=== PATIENT | female | born 1990 | race Caucasian/White ===

== ENCOUNTER 2016-11-09 15:39 | Emergency (ER) | payer OTHER ==
--- NOTE | ~2016-11-09 | CT2 ---
[facility] A Service of [facility] RADIOLOGY TEXT RESULTS PATIENT: DIVYA DOTSON LOCATION: SED : 90 UNIT #: [id number] AGE: [address]: Luigi Roberts MD SEX: F ORDER DR: [id number] [address] [address] [id number] MR#: [id number] Acc #: [id number] NAME: DIVYA DOTSON : 1990 SEX: F STUDY DATE/TIME: 11/09/2016 17:55 UNIT: SED ROOM: STUDY DESCRIPTION: CT Abd and Pelv W Cont Attending Physician: Luigi Roberts M.D. Ordering Physician: Luigi Roberts M.D. Primary Care Physician: David Hollins M.D. MEDICAL IMAGING REPORT This report is preliminary unless electronic signature is present. EXAM CT abdomen and pelvis with contrast 11/09/2016 HISTORY 26-year-old female in the ED complaining of lower abdomen pain beginning about 1 hour prior to arrival. She states her IUD has shifted position. TECHNIQUE CT examination of the abdomen and pelvis was performed with IV contrast. GI contrast was not administered. This CT examination was performed with one or more of the following radiation dose reduction techniques: automatic exposure control, adjustment of mA and/or kV according to patient size, and iterative reconstruction. FINDINGS ABDOMEN: Liver, pancreas, spleen and kidneys are normal in size and appearance. Nondistended gallbladder. No bile duct dilatation. Small bowel and colon are normal in caliber and appearance. The appendix is normal where seen. PELVIS: The IUD is suboptimally positioned in the upper endocervical canal and lower uterine segment. Small physiologic ovary cysts are present bilaterally along with a small amount of free pelvic fluid. Bladder and rectum are negative. Limited lung base images show no active disease. IMPRESSION 1. No acute abnormality within the abdomen or pelvis. 2. Normal appendix. 3. Suboptimally positioned IUD within the upper endocervical canal and lower uterine segment. Small amount of physiologic free pelvic fluid. [facility] A Service of [facility] RADIOLOGY TEXT RESULTS PATIENT: DIVYA DOTSON LOCATION: SED : 90 UNIT #: [id number] AGE: [address]: Luigi Roberts MD SEX: F ORDER DR: Dictated by... Justen Campos M.D. THIS IS AN ELECTRONICALLY VERIFIED REPORT Justen Campos M.D. at 11/10/2016 12:52 PM DANIELLA/maryr TD: 11/10/2016 09:15 JOB #: [id number] MEDICAL IMAGING REPORT Page 1 of 1
[~2016-11-09 15:39] MED LIST: AMOXICILLIN PO; CIPRO PO; CORTISPORIN-TC10 ML OT; DOXYCYCLINE150 MG PO; FLEXERIL10 MG PO; IBUPROFEN800 MG PO; LORTAB 5/500 TA1 TA1 PO; PYRIDIUM PO; VIBRAMYCIN100 M1 PO
[2016-11-09 16:58] LABS: URINE SOURCE CLEAN CATCH
[2016-11-09 17:01] LABS: URINE APPEARANCE CLEAR; URINE BILIRUBIN NEG (NEG); URINE BLOOD NEG (NEG); URINE COLOR YELLOW; URINE GLUCOSE NEG (NORM); URINE KETONE NEG (NEG); URINE LEUKOCYTE ESTERASE NEG (NEG); URINE NITRATE NEG (NEG); URINE PH 5.5 (5-8); URINE PROTEIN NEG (NEG); URINE SPECIFIC GRAVITY >=1.030 (1.003-1.035); URINE UROBILINOGEN 0.2 MG/DL (NORM)
[2016-11-09 17:11] LABS: AMPHETAMINE POS (NEG); BARBITURATES NEG (NEG); BENZODIAZEPINES NEG (NEG); COCAINE NEG (NEG); MARIJUANA NEG (NEG); OPIATES NEG (NEG); TRICYCLIC ANTIDEPRESSANTS NEG (NEG); U METHADONE NEG (NEG)
[2016-11-09 17:24] LABS: BASOPHIL# 0.1 X10e3 (0-0.3); EOSINOPHIL# 0.1 X10e3 (0-0.7); EOSINOPHIL% 1.6 % (0.0-7.0); HEMATOCRIT 42.2 % (35.0-45.0); HEMOGLOBIN 14.4 gm/dL (12.0-16.0); LYMPHOCYTE# 2.8 X10e3 (1.0-3.5); LYMPHOCYTE% 37.1 % (17.0-45.0); MEAN CELL VOLUME 89.6 FL (83-96); MEAN CORPUSCULAR HEMOGLOBIN 30.6 PG (28-34); MEAN CORPUSCULAR HGB CONC 34.1 g/dL (30-36); MEAN PLATELET VOLUME 7.4 FL (6.5-11.5); MONOCYTE# 0.4 X10e3 (0-1.0); MONOCYTE% 5.7 % (3.0-12.0); NEUTROPHIL# 4.2 X10e3 (1.5-7.1); NEUTROPHIL% 54.6 % (40-75); PLATELET COUNT 285 X10e3 (140-420); RED CELL DISTRIBUTION WIDTH 13.3 % (11.0-15.5); WHITE BLOOD COUNT 7.6 X10e3 (4.0-10.5)
[2016-11-09 17:29] LABS: MICRO INDICATED? NO
[2016-11-09 17:36] LABS: DIFF IND NO
[2016-11-09 17:41] LABS: ALBUMIN SERUM 4.4 g/dL (3.5-5.0); ALKALINE PHOSPHATASE 54 U/L (32-92); ALT (SGPT) 23 U/L (10-40); AST (SGOT) 18 U/L (10-42); BILIRUBIN,TOTAL 0.4 mg/dL (0.2-2.0); BLOOD UREA NITROGEN 13 mg/dL (9-23); BUN/CREATININE RATIO 18.57; CALCIUM SERUM 9.4 mg/dL (8.4-10.2); CARBON DIOXIDE 27 mmol/L (22-31); CHLORIDE 106 mmol/L (100-111); CREATININE SERUM 0.7 mg/dL (0.6-1.4); GLOM FILT RATE Estimated 119.6 mL/min (>60); GLUCOSE FASTING 87 mg/dL (70-110); LIPASE 31 U/L (22-51); PROTEIN TOTAL SERUM 8.2 g/dL (6.0-8.3); SODIUM 138 mmol/L (135-145)
[2016-11-09 17:46] LABS: BILIRUBIN, DIRECT <0.1 mg/dL (0.0-0.2); BILIRUBIN,INDIRECT 0.3 mg/dL (0.0-0.9)
[2016-11-12 16:44] LABS: CHLAMYDIA TRACH Not Detected (Not Detected); N GONOR Not Detected (Not Detected)
== END 2016-11-09 19:26 | disposition home or self-care (01) ==
LOC: SED 15:39
PROVIDERS: Emergency Medicine
DX: R10.31 Right lower quadrant pain (principal); R10.32 Left lower quadrant pain; F17.200 Nicotine dependence, unspecified, uncomplicated
CPT/HCPCS: 36415; 74177; 80048; 80076; 80307; 81003; 83690; 84703; 85025; 87210; 87491; 87591; 87808; 87905; 96361; 96374; 99284; J1885; Q9967

== ENCOUNTER 2016-11-26 18:26 | Emergency (ER) | payer OTHER ==
[2016-11-26] MEDS ORDERED: BUSPAR5 M1 (18:36)
[2016-11-26] MEDS ORDERED: PROZAC10 M1 (18:36)
== END 2016-11-26 19:44 | disposition home or self-care (01) ==
LOC: SED 18:26
DX: T18.9XXA Foreign body of alimentary tract, part unspecified, initial encounter (principal); F41.9 Anxiety disorder, unspecified; Z86.19 Personal history of other infectious and parasitic diseases
CPT/HCPCS: 99283